=== PATIENT | male | born 1975 | race Caucasian/White ===

== ENCOUNTER 2020-11-12 14:48 | Emergency (ER) | payer OTHER ==
[2020-11-12] MEDS ORDERED: LODINE CAP 300300 MG PO (21:55)
[2020-11-12] MEDS ORDERED: NORFLEX 100 MG100 MG PO (21:55)
== END 2020-11-12 22:04 | disposition home or self-care (01) ==
LOC: ER1 14:48
DX: S29.012A Strain of muscle and tendon of back wall of thorax, initial encounter (principal); S30.1XXA Contusion of abdominal wall, initial encounter; S20.219A Contusion of unspecified front wall of thorax, initial encounter; V49.60XA Unspecified car occupant injured in collision with unspecified motor vehicles in traffic accident, initial encounter; Y92.410 Unspecified street and highway as the place of occurrence of the external cause
CPT/HCPCS: 71260; 73030; 99285; Q9967